=== PATIENT | male | born 1980 ===

== ENCOUNTER 2018-07-15 01:12 | Emergency (ER) | payer SELFPAY ==
[2018-07-15] MEDS ORDERED: Diphtheria,Pertussis(Acell),Tetanus Vaccine 0.5 ML SDV inactive IM ONE (01:30)
--- NOTE | 2018-07-15 08:51 | EDM.PDOC ---
ED HPI GENERAL MEDICAL PROBLEM - General Chief Complaint: General Stated Complaint: HEAD LACERATION Time Seen by Provider: 07/15/18 01:30 Source of Information: Reports: EMS History Limitations: Reports: No Limitations, Other (pt under influence of alcohol but co-operative) - History of Present Illness INITIAL COMMENTS - FREE TEXT/NARRATIVE: Pt is a 38 year old male apparently was drinking all night at the local bar. He fell off the bar stool and landed backward and hit his head against the floor and sustained a laceration. No loss of consciousness. No bleeding from ENT, no vomiting since injury. No headache or weakness, no shortness of breath. There is active bleeding from the back of the head. Pt is not sure of his tetanus status. Pt refused C-collar. Does not c/o neck pain. Onset: Today Onset Date: 07/15/18 Onset Time: 00:45 (Prior to arrival) Location: Reports: Head Quality: Reports: Other (laceration) Severity: Moderate Improves with: Reports: None Worsens with: Reports: None Associated Symptoms: Denies: Confusion, Chest Pain, Cough, Diaphoresis, Fever/ Chills, Headaches, Nausea/Vomiting, Rash, Seizure, Shortness of Breath, Weakness - Related Data Allergies Allergy/AdvReac Type Severity Reaction Status Date / Time No Known Allergies Allergy Verified 07/15/18 01:30 Home Meds: Home Meds NK [No Known Home Meds] 07/15/18 [History] ED ROS GENERAL - Review of Systems Review Of Systems: See Below Constitutional: Denies: Fever, Chills, Malaise, Weakness HEENT: Denies: Rhinitis, Throat Pain Respiratory: Denies: Shortness of Breath, Cough, Sputum Cardiovascular: Denies: Chest Pain, Lightheadedness GI/Abdominal: Denies: Abdominal Pain, Nausea, Vomiting Musculoskeletal: Denies: Joint Pain, Joint Swelling Skin: Reports: Wound (scalp laceration). Denies: Bruising, Pruritis, Rash Neurological: Denies: Confusion, Dizziness, Headache, Numbness, Seizure, Tingling, Trouble Speaking, Weakness ED EXAM, GENERAL - Physical Exam Exam: See Below Exam Limited By: No Limitations General Appearance: Alert, WD/WN, No Apparent Distress, Other (Pt is under influence of alcohol, but alert and oriented) Eye Exam: Bilateral Eye: EOMI, PERRL Ears: Normal External Exam, Normal Canal, Hearing Grossly Normal, Normal TMs Ear Exam: Bilateral Ear: Auricle Normal, Canal Normal, TM normal Nose: Normal Inspection, Normal Mucosa, No Blood Throat/Mouth: Normal Inspection, Normal Lips, Normal Teeth, Normal Gums, Normal Oropharynx, Normal Voice, No Airway Compromise Head: Normocephalic, Other (There is a 3 cm linear scalp laceration over the occipital region. Active bleeding form the scalp laceration noted.). No: Facial Swelling, Facial Tenderness Neck: Normal Inspection, Supple, Non-Tender, Full Range of Motion Respiratory/Chest: No Respiratory Distress, Lungs Clear, Normal Breath Sounds, No Accessory Muscle Use, Chest Non-Tender Cardiovascular: Normal Peripheral Pulses, Regular Rate, Rhythm, No Edema, No Gallop, No JVD, No Murmur, No Rub Extremities: Normal Inspection, Normal Range of Motion, Non-Tender, Normal Capillary Refill, No Pedal Edema Neurological: Alert, Oriented, CN II-XII Intact, Normal Cognition, Normal Gait, Normal Reflexes, No Motor/Sensory Deficits Skin Exam: Warm, Intact ED GENERAL MEDICAL PROCEDURES - Laceration/Wound Repair Head Lac/wound length in cm: 3 Appearance: Linear Distal NVT: Neuro & Vascular Intact Local Anesthesia - Lidocaine (Xylocaine): 1% with EPI Local Anesthetic Volume: 3cc Skin Prep: Chlorhexidine (Hibiciens) Saline irrigation (cc's): 50 Exploration/Debridement/Repair: Wound Explored Closed with: Rito # of Sutures: 8 Sterile Dressing Applied: Provider Tetanus Status Addressed: Yes Complications: No Course - Vital Signs Text/Narrative:: Pt is under influence of alcohol but very co-operative. He does have good AROM of the neck. No vertebral tenderness. He does have 3 cm scalp laceration over the occipital region. The wound was closed with rito under aseptic precautions. Bleeding controlled. He did receive tetanus today. Pt reassured. advised cold compresses every 3-4 hrs. Motrin 800mg 3 times daily as needed for pain. Return to emergency room, if he develops intractable headache, vomiting, blurry vision, weakness, tingling or numbness in the extremities, shortness of breath, confusion in the next 24 hrs. Daily simple wound dressings . Suture removal in 7 days in the clinic. - Orders/Labs/Meds Orders: Active Orders 24 hr Category Date Time Status Vaccines to be Administered [RC] PER UNIT ROUTINE Care 07/15/18 01:30 Active Meds: Medications Discontinued Medications Generic Name Dose Route Start Last Admin Trade Name Josie PRN Reason Stop Dose Admin Diphtheria/Tetanus/Acell Pertussis 0.5 ml 07/15/18 01:30 07/15/18 01:15 Boostrix IM 07/15/18 01:31 0.5 ml .ONCE ONE Administration Departure - Departure Time of Disposition: 01:45 Disposition: Home, Self-Care 01 Condition: Good Clinical Impression: Occipital scalp laceration - Discharge Information *PRESCRIPTION DRUG MONITORING PROGRAM REVIEWED*: Not Applicable *COPY OF PRESCRIPTION DRUG MONITORING REPORT IN PATIENT COLE: Not Applicable Instructions: Head Injury, Adult Referrals: PCP,None [Primary Care Provider] - Forms: ED Department Discharge Additional Instructions: Return to clinic or ER if c/o nausea vomiting, neck pain, increased head pain, weakness or numbness to extremities. Have rito removed at clinic or er in 7 days - Problem List & Annotations (1) Occipital scalp laceration SNOMED Code(s): 911418791 Code(s): S01.01XA - LACERATION WITHOUT FOREIGN BODY OF SCALP, INITIAL ENCOUNTER Status: Acute - Problem List Review Problem List Initiated/Reviewed/Updated: Yes - My Orders Last 24 Hours: My Active Orders 07/15/18 01:30 Vaccines to be Administered [RC] PER UNIT ROUTINE - Assessment/Plan Last 24 Hours: My Active Orders 07/15/18 01:30 Vaccines to be Administered [RC] PER UNIT ROUTINE Assessment:: 3cm occipital laceration Plan: Pt is under influence of alcohol but very co-operative. He does have good AROM of the neck. No vertebral tenderness. He does have 3 cm scalp laceration over the occipital region. The wound was closed with rito under aseptic precautions. Bleeding controlled. He did receive tetanus today. Pt reassured. advised cold compresses every 3-4 hrs. Motrin 800mg 3 times daily as needed for pain. Return to emergency room, if he develops intractable headache, vomiting, blurry vision, weakness, tingling or numbness in the extremities, shortness of breath, confusion in the next 24 hrs. Daily simple wound dressings . Suture removal in 7 days in the clinic.
[2018-07-15] MEDS ORDERED: Lidocaine 1% with EPINEPHrine 1:100,000 20 ML MDV ONE (22:30)
== END 2018-07-15 01:35 | disposition home or self-care (01) ==
LOC: LB.ED 01:12
DX: S01.01XA Laceration without foreign body of scalp, initial encounter (principal); Z23 Encounter for immunization; W08.XXXA Fall from other furniture, initial encounter
CPT/HCPCS: 12002; 90471; 90715; 99283; A0425; A0429